=== PATIENT | female | born 1985 | race Caucasian/White ===

== ENCOUNTER 2016-10-02 13:52 | Outpatient (CLI) | payer OTHER ==
[2016-10-02] MEDS ORDERED: IOHEXOL 50 ML IV ONE (14:32)
== END 2016-10-02 19:36 | disposition home or self-care (01) ==
LOC: SRD 13:52
PROVIDERS: ATTEND Obstetrics & Gynecology
DX: Z01.818 Encounter for other preprocedural examination (principal); N97.9 Female infertility, unspecified
CPT/HCPCS: 74740; C1751; Q9967